=== PATIENT | female | born 1980 | race Caucasian/White ===

== ENCOUNTER 2019-11-02 17:48 | Emergency (ER) | payer OTHER ==
[2019-11-02] MEDS ORDERED: CEPHALEXIN 500 MG CAPSULE PO STA (18:35)
[2019-11-02] MEDS ORDERED: Diph,Pert(Acell),Tet Vac 0.5 ML SYR IM ONE (18:35)
--- NOTE | 2019-11-02 18:40 | Emergency Department Record ---
History of Present Illness - General Chief complaint: Extremity Problem Stated complaint: L INDEX FINGER INJURY Time Seen by Provider: 11/02/19 18:29 Source: Patient Mode of Arrival: Ambulatory Limitations: No limitations - History of Present Illness Initial comments: The patient is here due to injuring her L 2nd finger yesterday. She was working with a sharp object and accidentally poked her L 2nd finger with it. The puncture wound was over the dorsal L 2nd finger radial side between the PIP and MCP joint. Now today the finger has become painful and sore and slightly swollen over the dorsal area between the PIP and MCP joints. There is no pain on the flexor surface. The patient states her Td is not UTD and she denies any chance of any FB in the wound. MD Complaint: Extremity pain Onset/Timin -: Days(s) - Related Data Previous Rx's Medication Instructions Recorded Cephalexin [Keflex] 500 mg PO QID #28 cap 11/02/19 Allergies Allergy/AdvReac Type Severity Reaction Status Date / Time acetaminophen [From [facility]] AdvReac "makes my Verified 11/02/19 18:38 mouth sensative" hydrocodone bitartrate AdvReac "makes my Verified 11/02/19 18:38 [From [facility]] mouth sensative" Review of Systems Constitutional: Denies: Chills, Fever Past Medical History - SOCIAL HISTORY Smoking Status: Current every day smoker - RESPIRATORY Hx Respiratory Disorders: No - CARDIOVASCULAR Hx Cardio Disorders: No - NEURO Hx Neuro Disorders: No - GI Hx GI Disorders: No - Hx Genitourinary Disorders: No - ENDOCRINE Hx Endocrine Disorders: No - MUSCULOSKELETAL Hx Musculoskeletal Disorders: Yes Hx Musculoskeletal Disease: Yes (chronic back pain) - PSYCH Hx Psych Problems: Yes Hx Anxiety: Yes Hx Depression: Yes - HEMATOLOGY/ONCOLOGY Hx Hematology/Oncology Disorders: No Physical Exam - General General Appearance: Alert, Oriented x3, Cooperative, No acute distress - Head Head exam: Atraumatic - Eye Eye exam: Normal appearance - Extremities Extremities exam: Full ROM (There is normal ROM to the L 2nd finger MCP and PIP joints. There are no signs of flexor tenosynovitis.), Normal capillary refill, Tenderness (Only over the dorsal proximal L 2nd finger. There is no tenderness to the flexor surface of the finger.). negative: Normal inspection (There is a punctate PW over the L 2nd finger at the site of the injury. There is mild swelling to the dorsal L 2nd finger between the PIP and MCP joints. ), Joint swelling Image of Hand: 1 - Area of infection, swelling, erythema and tenderness. - Neurological Neurological exam: Alert. negative: Motor sensory deficit Course - Reevaluation(s) Reevaluation #1: I did discuss the need to continue the oral Abx's and warm soaks. She is to return to the ER tomorrow morning for if not better or for any worsening symptoms. If improved she is to see her PCP this next week. 11/02/19 19:19 Medical Decision Making - Data Complexity MDM Data: X-Ray Ordered and/or Reviewed - Radiology Data Radiology results: Report reviewed (L 2nd finger: neg for fx of FB. Soft tissue swelling.) Disposition Disposition: Discharge Clinical Impression: Finger infection Disposition: Home, Self-Care Condition: (2) Stable Instructions: Wound Infection (ED) Additional Instructions: Please continue the Keflex and use warm compresses or soaks on the finger. Please see your doctor in 2-3 days for recheck if better. Return to the ER in 12 hours if not better. Prescriptions: Cephalexin [Keflex] 500 mg PO QID #28 cap Forms: Patient Portal Access Time of Disposition: 19:17 Quality - Quality Measures Quality Measures: N/A - Blood Pressure Screening View Details: Yes Does Patient Have Any of the Following: No Blood Pressure Classification: Pre-Hypertensive BP Reading Systolic Measurement: 128 Diastolic Measurement: 81 Screening for High Blood Pressure: < Pre-Hypertensive BP, F/U Documented > [G8950] Pre-Hypertensive Follow-up Interventions: Referral to alternative/primary care provider.
--- NOTE | 2019-11-02 19:03 | RADIOLOGY REPORT ---
EXAMINATION: Left Thumb, Minimum Two Views EXAM DATE: 11/02/2019 6:58 PM TECHNIQUE: PA, lateral, and oblique views INDICATION: L 2nd finger pain COMPARISON: None ENCOUNTER: Initial FINDINGS: Soft tissue swelling. No evidence of radiopaque foreign body or fracture. IMPRESSION: Soft tissue injury. Dictated by: Will Bonner MD on 11/02/2019 7:00 PM. .
== END 2019-11-02 19:26 | disposition home or self-care (01) ==
LOC: ER 17:48
DX: S61.231A Puncture wound without foreign body of left index finger without damage to nail, initial encounter (principal); L08.9 Local infection of the skin and subcutaneous tissue, unspecified; W26.9XXA Contact with unspecified sharp object(s), initial encounter; F17.210 Nicotine dependence, cigarettes, uncomplicated
CPT/HCPCS: 73140; 90715; 96372; 99284